=== PATIENT | male | born 1980 | race Two or more races ===

== ENCOUNTER 2021-05-19 15:48 | Emergency (ER) | payer MEDICAID, OTHER ==
[~2021-05-19] VITALS: Ht 175.3 cm; Wt 90.7 kg
[2021-05-19 16:44] VITALS: BP 133/85
== END 2021-05-19 17:15 | disposition home or self-care (01) ==
LOC: ER 15:48
DX: S61.213A Laceration without foreign body of left middle finger without damage to nail, initial encounter (principal); W26.8XXA Contact with other sharp object(s), not elsewhere classified, initial encounter; Y93.89 Activity, other specified; Y92.89 Other specified places as the place of occurrence of the external cause; Y99.8 Other external cause status
CPT/HCPCS: 12002; 99282; J2001